=== PATIENT | female | born 1940 | race Caucasian/White ===

== ENCOUNTER 2019-04-16 13:53 | Emergency (ER) | payer MEDICARE ==
[2019-04-16] MEDS: KETOROLAC 30 MG INJ IM (15:12)
== END 2019-04-16 17:45 | disposition home or self-care (01) ==
LOC: E/R 13:53
DX: K40.91 Unilateral inguinal hernia, without obstruction or gangrene, recurrent (principal); I10 Essential (primary) hypertension; Z79.82 Long term (current) use of aspirin; Z79.84 Long term (current) use of oral hypoglycemic drugs
CPT/HCPCS: 74176; 96372; 99285-25